=== PATIENT | male | born 2000 | race Caucasian/White ===

== ENCOUNTER 2021-08-31 22:11 | Emergency (ER) | payer OTHER ==
[2021-08-31 23:06] LABS: BASOPHIL 0.2 % (0-2); EOSINOPHIL 0.3 % (0-5); HCT 39.8 % (42.0-52.0); HGB 13.7 g/dl (13.2-18.0); LYMPHOCYTE 35.6 % (15-48); MCH 30.5 pg (25.0-31.0); MCHC 34.4 g/dL (32.0-36.0); MCV 88.6 fL (78.0-100.0); MONOCYTE 13.1 % (0-12); MPV 9.5 fL (6.0-9.5); NEUTROPHIL 50.5 % (41-80); NRBC 0; PLT 263 K/uL (150-400); RBC 4.49 M/uL (4.70-6.00); RDW 13.1 % (11.5-14.0); WBC 9.8 K/uL (4.0-10.5)
[2021-08-31 23:23] LABS: ALBUMIN 4.3 g/dL (3.4-5.0); BILIRUBIN - TOTAL 0.7 mg/dL (0.2-1.0); BUN/CREAT RATIO (CALC) 16.7 RATIO; CREATININE 1.08 mg/dL (0.67-1.17); GLOBULIN (CALCULATION) 3.3 g/dL; POTASSIUM 3.9 mmol/L (3.5-5.1); TOTAL PROTEIN 7.6 g/dL (6.4-8.2)
[2021-09-01] MEDS ORDERED: PREDNISONE 20MG20 MG PO (00:20)
== END 2021-09-01 00:35 | disposition home or self-care (01) ==
LOC: FER 22:11
PROVIDERS: Internal Medicine
DX: U07.1 COVID-19 (principal); F15.10 Other stimulant abuse, uncomplicated; R74.8 Abnormal levels of other serum enzymes; I10 Essential (primary) hypertension; Z28.310 Unvaccinated for COVID-19; Z79.899 Other long term (current) drug therapy
CPT/HCPCS: 36415; 71045; 80053; 82550; 83735; 84145; 85025; J1100; J2405; J7120

== ENCOUNTER 2021-09-01 14:31 | Emergency (ER) | payer OTHER ==
[~2021-09-01 14:31] MED LIST: PREDNISONE 20MG20 MG PO
[2021-09-01 16:19] LABS: BASOPHIL 0.1 % (0-2); EOSINOPHIL 0 % (0-5); HCT 39.4 % (42.0-52.0); HGB 13.6 g/dl (13.2-18.0); LYMPHOCYTE 24.3 % (15-48); MCH 30.6 pg (25.0-31.0); MCHC 34.5 g/dL (32.0-36.0); MCV 88.5 fL (78.0-100.0); MONOCYTE 14.6 % (0-12); MPV 9.7 fL (6.0-9.5); NEUTROPHIL 60.9 % (41-80); NRBC 0; PLT 293 K/uL (150-400); RBC 4.45 M/uL (4.70-6.00); WBC 7.7 K/uL (4.0-10.5)
[2021-09-01 16:30] LABS: BUN/CREAT RATIO (CALC) 21.7 RATIO; CREATININE 0.83 mg/dL (0.67-1.17)
== END 2021-09-01 18:25 | disposition home or self-care (01) ==
LOC: FER 14:31
PROVIDERS: Nurse Practitioner Family
DX: R07.89 Other chest pain (principal); F15.10 Other stimulant abuse, uncomplicated; I10 Essential (primary) hypertension
CPT/HCPCS: 36415; 71045; 80048; 85025; 85379; 93005

== ENCOUNTER 2021-09-01 22:26 | Emergency (ER) | payer OTHER | END 2021-09-02 01:08 | disposition left against medical advice (07) | LOC: FER 22:26 | DX: F15.10 Other stimulant abuse, uncomplicated (principal); F17.290 Nicotine dependence, other tobacco product, uncomplicated; Z86.16 Personal history of COVID-19; Z53.29 Procedure and treatment not carried out because of patient's decision for other reasons; Z28.310 Unvaccinated for COVID-19 | CPT/HCPCS: 99283 ==